=== PATIENT | male | born 1945 | race Caucasian/White ===

== ENCOUNTER 2024-01-23 09:44 | Day surgery (SDC) | payer OTHER ==
[~2024-01-23] VITALS: Ht 165.1 cm; Wt 58.0 kg
[~2024-01-23 09:44] MED LIST: Balanced Salt Epinephrine Irrigation Solution 500 mL IR SCH; Lidocaine HCl/Pf 1% 5 ML VIAL XX SCH; Moxifloxacin HCL 0.5 MG/0.1 ML 0.4MLSYR LEFTEYE SCH; NS 500 ML IV ONE; PHENYLEPHRINE\\TROPICAMIDE\\TETRACAINE OPHTHALMIC DILATING SOLN LEFTEYE PRN; Povidone-Iodine 450 DROP/30 ML Solution LEFTEYE SCH; Triamcinolone Inj Susp 40 MG / ML 1ML Vial INJ SCH
[2024-01-23] MEDS ORDERED: AMLODIPINE BESY10 MG PO (10:02)
[2024-01-23] MEDS ORDERED: BUPROPION XL150 M1 PO (10:03)
[2024-01-23] MEDS ORDERED: ATOR40TA PO (10:03)
[2024-01-23] MEDS ORDERED: METOPROLOL TART5010 PO (10:04)
[2024-01-23] MEDS ORDERED: ANORO ELLIPTA1 EACH INH (10:04)
[2024-01-23] MEDS ORDERED: FentaNYL Citrate 50 MCG/ML 2 ML Injection ONE (10:05)
[2024-01-23] MEDS ORDERED: NS 500 ML IV ONE (10:11)
--- NOTE | 2024-01-23 10:15 | NUR ---
[facility] DR HUERTA NOTIFIED THAT PATIENT TOOK A SIP OF COFFEE WITH CREAM AND SUGAR THIS MORNING AT 0600 WITH HIS BLOOD PRESSURE MEDICINE.
[2024-01-23] MEDS ORDERED: Midazolam HCl 1MG / ML 2ML Vial ONE (10:41)
--- NOTE | 2024-01-23 11:01 | NUR ---
01/23/24 1101 JOSE DANIEL GUAJARDO PT O2 SAT 88%-93 REFUSED O2 BY NC WHEN RN ATTEMPTED TO ADMINISTER O2
[2024-01-23 11:02] VITALS: BP 137/71
== END 2024-01-23 11:22 | disposition home or self-care (01) ==
LOC: ORSCSDS 09:44
PROVIDERS: Ophthalmology
PROC: 08RK3JZ Replacement of Left Lens with Synthetic Substitute, Percutaneous Approach (ICD-10-PCS; principal; 2024-01-23 11:00)
DX: H25.812 Combined forms of age-related cataract, left eye (principal); J43.9 Emphysema, unspecified; I10 Essential (primary) hypertension; J44.9 Chronic obstructive pulmonary disease, unspecified; F17.210 Nicotine dependence, cigarettes, uncomplicated; Z79.899 Other long term (current) drug therapy
CPT/HCPCS: J2250; J3010; J7040; V2632

== ENCOUNTER → 2024-05-26 | Outpatient (CLI) | payer OTHER ==
[~2024-05-26] MED LIST changes: +AMLODIPINE BESY10 MG PO; +ANORO ELLIPTA1 EACH INH; +ATOR40TA PO; +BUPROPION XL150 M1 PO; -Balanced Salt Epinephrine Irrigation Solution 500 mL IR SCH; -Lidocaine HCl/Pf 1% 5 ML VIAL XX SCH; +METOPROLOL TART5010 PO; -Moxifloxacin HCL 0.5 MG/0.1 ML 0.4MLSYR LEFTEYE SCH; -NS 500 ML IV ONE; -PHENYLEPHRINE\\TROPICAMIDE\\TETRACAINE OPHTHALMIC DILATING SOLN LEFTEYE PRN; -Povidone-Iodine 450 DROP/30 ML Solution LEFTEYE SCH; -Triamcinolone Inj Susp 40 MG / ML 1ML Vial INJ SCH
== END | disposition home or self-care (01) ==
LOC: LAB 14:03 → LAB SHORT 14:03
DX: T14.8XXA Other injury of unspecified body region, initial encounter (principal); L08.9 Local infection of the skin and subcutaneous tissue, unspecified
CPT/HCPCS: 87070; 87205

== ENCOUNTER 2024-09-18 16:26 | Emergency (ER) | payer OTHER ==
[~2024-09-18] VITALS: Ht 165.1 cm; Wt 60.8 kg
[2024-09-18 17:16] LABS: BASOPHILS ABSOLUTE AUTO 0.17 K/mm3 (0.00-0.23); BASOPHILS PERCENT AUTO 2 % (0-2); EOSINOPHILS ABSOLUTE AUTO 0.16 K/mm3 (0.00-0.68); EOSINOPHILS PERCENT AUTO 2 % (0-6); Hematocrit 44.9 % (37.0-53.0); Hemoglobin 15.3 g/dL (13.5-17.5); IMMATURE GRAN ABSOLUTE AUTO 0.02 K/mm3 (0.00-0.10); IMMATURE GRAN PERCENT AUTO 0 % (0-1); LYMPHOCYTES ABSOLUTE AUTO 1.19 K/mm3 (0.84-5.20); LYMPHOCYTES PERCENT AUTO 15 % (21-46); MONOCYTES ABSOLUTE AUTO 0.98 K/mm3 (0.16-1.47); MONOCYTES PERCENT AUTO 12 % (4-13); Mean Corpuscular HGB 32.8 pg (26.0-34.0); Mean Corpuscular HGB Conc 34.1 g/dL (31.5-36.5); Mean Corpuscular Volume 96 fL (80-100); Mean Platelet Volume 10.7 fL (9.1-12.4); NEUTROPHILS PERCENT AUTO 69 % (41-73); Platelet Count 237 K/mm3 (150-400); RDW Standard Deviation 49.4 fL (35.1-46.3); Red Blood Cell Count 4.67 M/mm3 (4.30-5.90); White Blood Cell Count 8.02 K/mm3 (4.00-11.30)
[2024-09-18 17:57] LABS: Albumin, Blood 3.4 g/dL (3.4-5.0); Albumin/Globulin Ratio 0.8 (0.8-1.8); Bilirubin, Total 0.7 mg/dL (0.1-1.0); Bun/Creatinine Ratio 18.3 (12.0-20.0); Calcium, Blood 8.9 mg/dL (8.5-10.1); Creatinine, Blood 0.88 mg/dL (0.60-1.20); Globulin, Blood 4.5 g/dL (2.2-4.0); Potassium, Blood 4.4 mmol/L (3.5-5.5); Total Protein, Blood 7.9 g/dL (6.4-8.2)
[2024-09-18] MEDS ORDERED: Doxycycline Hyclate 100 MG TAB PO ONE (18:35)
[2024-09-18] MEDS ORDERED: DOXY100 PO (18:36)
[2024-09-18 18:44] VITALS: BP 157/74
== END 2024-09-18 18:45 | disposition home or self-care (01) ==
LOC: ER 16:26
PROVIDERS: Physician Assistant
DX: J44.0 Chronic obstructive pulmonary disease with (acute) lower respiratory infection (principal); J18.9 Pneumonia, unspecified organism; Z88.0 Allergy status to penicillin; Z88.5 Allergy status to narcotic agent; Z79.1 Long term (current) use of non-steroidal anti-inflammatories (NSAID); Z79.899 Other long term (current) drug therapy; I10 Essential (primary) hypertension
CPT/HCPCS: 71046; 80053; 85025; 85379; 93005; 93010; 99285-25; A9270

== ENCOUNTER 2024-12-20 13:27 | Inpatient (IN) | payer OTHER ==
[2024-12-20] VITALS (8 sets, daily range): BP systolic 97–141; BP diastolic 48–121
[~2024-12-20] VITALS: Ht 162.6 cm; Wt 62.3 kg
[~2024-12-20 13:27] MED LIST changes: +DOXY100 PO
[2024-12-20] MEDS ORDERED: Albuterol 2.5 MG/3 ML VIAL INH SCH (14:05)
[2024-12-20] MEDS ORDERED: Ipratropium Bromide INH 0.02% 0.5 mg/2.5ML Vial INH SCH (14:05)
[2024-12-20 14:17] LABS: BASOPHILS ABSOLUTE AUTO 0.04 K/mm3 (0.00-0.23); BASOPHILS PERCENT AUTO 0 % (0-2); EOSINOPHILS ABSOLUTE AUTO 0.01 K/mm3 (0.00-0.68); EOSINOPHILS PERCENT AUTO 0 % (0-6); Hematocrit 43.2 % (37.0-53.0); Hemoglobin 14.3 g/dL (13.5-17.5); IMMATURE GRAN PERCENT AUTO 1 % (0-1); LYMPHOCYTES ABSOLUTE AUTO 0.62 K/mm3 (0.84-5.20); LYMPHOCYTES PERCENT AUTO 5 % (21-46); MONOCYTES ABSOLUTE AUTO 2.04 K/mm3 (0.16-1.47); MONOCYTES PERCENT AUTO 16 % (4-13); Mean Corpuscular HGB 32.6 pg (26.0-34.0); Mean Corpuscular HGB Conc 33.1 g/dL (31.5-36.5); Mean Corpuscular Volume 98 fL (80-100); Mean Platelet Volume 11.5 fL (9.1-12.4); NEUTROPHILS ABSOLUTE AUTO 10.12 K/mm3 (1.96-9.15); NEUTROPHILS PERCENT AUTO 78 % (41-73); NRBC ABSOLUTE 0.58 K/mm3 (0.00-0.02); NRBC Auto 4.5 /100 WBC (0.0-0.2); Platelet Count 221 K/mm3 (150-400); RDW Coefficient Variation 15.2 % (11.7-14.2); RDW Standard Deviation 54.4 fL (35.1-46.3); Red Blood Cell Count 4.39 M/mm3 (4.30-5.90); White Blood Cell Count 12.93 K/mm3 (4.00-11.30)
[2024-12-20 14:36] LABS: Albumin/Globulin Ratio 0.8 (0.8-1.8); Bilirubin, Total 0.9 mg/dL (0.1-1.0); Bun/Creatinine Ratio 56.6 (12.0-20.0); Creatinine, Blood 1.45 mg/dL (0.60-1.20); Globulin, Blood 3.8 g/dL (2.2-4.0); Potassium, Blood 5.5 mmol/L (3.5-5.5); Total Protein, Blood 6.8 g/dL (6.4-8.2)
[2024-12-20] MEDS ORDERED: Piperacillin/Tazobactam Sod 3.375 GM in NS 100 ML IV ONE (15:40)
[2024-12-20] MEDS ORDERED: NS 1,000 ML IV SCH (15:40)
[2024-12-20 16:03] LABS: Base Excess Venous -1.6 mmol/L; Bicarbonate Venous 22.5 mmol/L (24.0-30.0); PCO2 Venous 51.4 mmHg (38-42); pH Blood Venous 7.29 (7.34-7.37)
[2024-12-20] MEDS ORDERED: Acetaminophen 325 MG TABLET PO PRN (16:45)
[2024-12-20] MEDS ORDERED: Ipratropium/Albuterol SulF 2.5-0.5MG/3 ML Amp INH SCH (16:50)
[2024-12-20 17:18] LABS: Base Excess Venous 4.8 mmol/L; PCO2 Venous 91.1 mmHg (38-42)
[2024-12-20] MEDS ORDERED: Azithromycin 500 MG in NS 250 ML IV SCH (17:18)
[2024-12-20 17:21] LABS: pH Blood Venous 7.17 (7.34-7.37)
[2024-12-20] MEDS ORDERED: Furosemide 10 MG/ML 4ML Vial IV SCH (18:00)
[2024-12-20] MEDS ORDERED: MethylPREDNISolone Sod Succ 125 MG Vial IV SCH (21:00)
[2024-12-20] MEDS ORDERED: Lactobacil 2-S.Thermo-Bifido 1 1 Cap PO SCH (21:00)
[2024-12-20] MEDS ORDERED: GuaiFENesin 600 MG TabCR PO SCH (21:00)
[2024-12-20] MEDS ORDERED: CefTRIAXone Sodium 1,000 MG in NS 100 ML IV SCH (22:11)
[2024-12-21] VITALS (7 sets, daily range): BP systolic 105–122; BP diastolic 52–77
[2024-12-21 03:36] LABS: BASOPHILS ABSOLUTE AUTO 0.04 K/mm3 (0.00-0.23); BASOPHILS PERCENT AUTO 0 % (0-2); EOSINOPHILS ABSOLUTE AUTO 0.01 K/mm3 (0.00-0.68); EOSINOPHILS PERCENT AUTO 0 % (0-6); Hematocrit 44.7 % (37.0-53.0); Hemoglobin 14.6 g/dL (13.5-17.5); IMMATURE GRAN ABSOLUTE AUTO 0.21 K/mm3 (0.00-0.10); IMMATURE GRAN PERCENT AUTO 2 % (0-1); LYMPHOCYTES ABSOLUTE AUTO 0.14 K/mm3 (0.84-5.20); LYMPHOCYTES PERCENT AUTO 1 % (21-46); MONOCYTES ABSOLUTE AUTO 0.41 K/mm3 (0.16-1.47); MONOCYTES PERCENT AUTO 3 % (4-13); Mean Corpuscular HGB 31.7 pg (26.0-34.0); Mean Corpuscular HGB Conc 32.7 g/dL (31.5-36.5); Mean Corpuscular Volume 97 fL (80-100); NEUTROPHILS PERCENT AUTO 94 % (41-73); NRBC ABSOLUTE 0.68 K/mm3 (0.00-0.02); NRBC Auto 5.5 /100 WBC (0.0-0.2); Platelet Count 194 K/mm3 (150-400); RDW Coefficient Variation 15.2 % (11.7-14.2); White Blood Cell Count 12.31 K/mm3 (4.00-11.30)
[2024-12-21 03:45] LABS: Base Excess Venous 4.9 mmol/L; Bicarbonate Venous 26.9 mmol/L (24.0-30.0); pH Blood Venous 7.31 (7.34-7.37)
[2024-12-21 03:54] LABS: Magnesium, Blood 2.9 mg/dL (1.6-2.4)
[2024-12-21 03:55] LABS: Albumin/Globulin Ratio 0.8 (0.8-1.8); Bilirubin, Total 0.8 mg/dL (0.1-1.0); Bun/Creatinine Ratio 53.3 (12.0-20.0); Calcium, Blood 7.7 mg/dL (8.5-10.1); Creatinine, Blood 1.35 mg/dL (0.60-1.20); Potassium, Blood 5.4 mmol/L (3.5-5.5)
--- NOTE | 2024-12-21 04:31 | NUR ---
PASSED BEDSIDE SWALLOW
[2024-12-21] MEDS ORDERED: Enoxaparin 40 MG/0.4 ML SYR SC SCH (09:00)
--- NOTE | 2024-12-21 12:21 | NUR ---
1200 REASSSESSMENT PT IS MORE ALERT SITTING UPRIGHT IN BED SPEAKING IN SHORT SENTANCES. SPO2 >92% ON 4L NC. PT TOLERATINFG PO INTAKE. LS STILL COARSE/DIM TO. PT W PRODUCTIVE HACKING COUGH. PT W INTERMITTANT TREMOR THAT HE REPORTS IS NOT NEW TO HIM. PT DENIES ANY PAIN OR NAUSEA AT THIS TIME.
[2024-12-21] MEDS ORDERED: Nicotine 21 MG PATCH TOP SCH (14:40)
--- NOTE | 2024-12-21 17:57 | NUR ---
DAY SHIFT SUMMARY PT'S MENTATION IMPROVING T/O THE SHIFT TO WHERE HE IS NOW TALKING IN FULL SENTANCES AND CARRYING ON A CONVERSATION. P[T WEARING BIPAP 16/8 W 35% FIO2 FOR MOST OF THE SHIFT USING 4L NC FOR BREAKS AND MEALS. PT W PRODUCTIVE COUGH T/O THE SHIFT. BP WNL AND STABLE. MONITOR SHOWING SR 90'S THIS SHIFT. PT CURRENTLY SITTING UP IN BED EATING DINNER DENYING ANY PAIN OR NAUSEA. WILL REPORT TO ONCOMING RN.
[2024-12-22] VITALS (7 sets, daily range): BP systolic 101–117; BP diastolic 46–63
[2024-12-22 03:22] LABS: Hematocrit 40.6 % (37.0-53.0); Hemoglobin 13.3 g/dL (13.5-17.5); Mean Corpuscular HGB 31.4 pg (26.0-34.0); Mean Corpuscular HGB Conc 32.8 g/dL (31.5-36.5); Mean Corpuscular Volume 96 fL (80-100); Mean Platelet Volume 11.2 fL (9.1-12.4); NRBC Auto 5.5 /100 WBC (0.0-0.2); Platelet Count 189 K/mm3 (150-400); RDW Coefficient Variation 15.3 % (11.7-14.2); RDW Standard Deviation 53.5 fL (35.1-46.3); Red Blood Cell Count 4.23 M/mm3 (4.30-5.90); White Blood Cell Count 14.61 K/mm3 (4.00-11.30)
[2024-12-22 03:40] LABS: Albumin, Blood 2.7 g/dL (3.4-5.0); Albumin/Globulin Ratio 0.8 (0.8-1.8); Bilirubin, Total 0.5 mg/dL (0.1-1.0); Bun/Creatinine Ratio 51.7 (12.0-20.0); Calcium, Blood 7.5 mg/dL (8.5-10.1); Creatinine, Blood 1.16 mg/dL (0.60-1.20); Globulin, Blood 3.5 g/dL (2.2-4.0); Potassium, Blood 5.4 mmol/L (3.5-5.5); Total Protein, Blood 6.2 g/dL (6.4-8.2)
--- NOTE | 2024-12-22 05:41 | NUR ---
SHIFT SUMMARY: PT IS ALERT & ORIENTED X3, HARD OF HEARING, AND MUMBLES WHEN TALKING-AT TIMES. PT CAN COMMUNICATE APPROPRIATELY W/STAFF, MAKE NEEDS KNOWN, AND FOLLOWS COMMANDS. PT OBSERVED TO BOOST HIMSELF UP FROM THE BED W/ BILAT UE. NEEDS ENCOURAGEMENT TO PERFORM INDEPENDENTLY. PT DID APPEAR TO HAVE SOME ANXIETY T/O THE ECD, EVIDENCED BY HIS CALLING OUT INTERMITTENTLY, USING STRESS BALL, AND CONTINUOUSLY TAPPING ON HIS BEDSIDE TABLE- HE WAS EASILY RE-ORIENTED AND ASSURED VIA VERBAL COMMUNICATION. PT ASKED AND RECEIVED MULTIPLE SNACKS T/O THE SHIFT. PT ABLE TO EAT INDEPENDENTLY W/MIN ASSISTANCE IN OPENING PACKAGES. HE REMAINED PLEASANT AND COOPERATIVE W/CARE T/O SHIFT. PT IN SINUS RHYTHM, HR 80S. SBP 100-110S. DENIED SOB. PT ON 1L O2 VIA NC, FIO2 MAINTAINED >90%. ABD REMAINS MODERATELY DISTENDED, SOFT TO PALPATION/NONTENDER. PT DID C/O OF ABD PAIN AFTER EPISODE OF INSISTENT HICCUPS. HE ALSO C/O OF GENERALIZED BACK PAIN, CHRONIC PER PT. HE WAS MEDICATED WITH TYLENOL PER EMAR ORDERS. SEE EMAR. PT HAS MALE PUREWICK IN PLACE, CONNECTED TO CONTINUOUS LOW SUCTION. THIS RN TO CONTINUE TO MONITOR AND REPORT TO ONCOMING RN.
[2024-12-22] MEDS ORDERED: Furosemide 40 MG Tab PO SCH (09:00)
[2024-12-22] MEDS ORDERED: Nicotine 21 MG PATCH TOP SCH (09:00)
--- NOTE | 2024-12-22 11:43 | NUR ---
AM NOTE: THIS RN ASSUMED CARE OF PT AT APPROX 0700, BEDSIDE REPORT FROM NOC RN. PT ALERT, ORIENTED X3-4. [place], MUMBLED SPEECH NOTED. HR 80-90'S, SINUS RHYTHM ON MONITOR. SBP 110'S, MAP >65. DENIES CHEST PAIN/PRESSURE. SPO2 >90% ON 3-6L VIA NC, WET PRODUCTIVE COUGH NOTED. PT ABLE TO SELF SUCTION THICK, WHITE SECRETIONS. EDUCATION ON FLUTTER & INCENTIVE SPIROMETER PROVIDED. ATTEMPTED BIPAP THIS AM, PT ONLY ABLE TO TOLERATE FOR SHORT PERIOD OF TIME. UP TO CHAIR VIA LIFT FOR BREAKFAST, MINCED & MOIST DIET. MALE PW DRAINING URINE TO SUCTION. DENIES PAIN. PT REMAINS PCU STATUS. RESTING IN CHAIR W/ BREATHING TX AT THIS TIME, CALL LIGHT IN REACH.
--- NOTE | 2024-12-22 13:27 | NUR ---
UPDATE: PT UP TO AMBULATE W/ RN'S. ABLE TO WALK APPROX 400FT W/ FWW & RN ASSIST FOR LINE MANAGEMENT ONLY. UP TO 6L NC TO MAINTAIN SPO2 >90%. ABLE TO SHOWER W/ RN ASSIST POST-WALK, BACK TO ROOM VIA WHEELCHAIR. VSS, ON 2L VIA NC W/ SPO2 >90%. UP IN CHAIR AT THIS TIME, CALL LIGHT IN REACH.
--- NOTE | 2024-12-22 17:57 | NUR ---
END OF SHIFT NOTE: PT REMAINS A/OX4, ABLE TO COMMUNICATE NEEDS. [place] W/ MUMBLED SPEECH. PT REMAINS OFF BIPAP, 2-3L VIA NC TO MAINTAIN SPO2 >90%. DESAT TO LOW-MID 80'S WHILE AMBULATING TO TOILET, ABLE TO RECOVER IN CHAIR. ENCOURAGING INCENTIVE SPIROMETRY & FLUTTER VALVE. PRODUCTIVE COUGH W/ WHITE SPUTUM, ABLE TO SELF SUCTION. HR 80-100'S, SINUS/SINUS TACH ON MONITOR PRIOR TO REMOVAL. SBP 110'S, DENIES CHEST PAIN/PRESSURE. AFEBRILE. PUREWICK USED THIS AM, PT REQUESTING TO USE URINAL THIS AFTERNOON. UP TO TOILET FOR BM. ABLE TO AMBULATE W/ FWW. TOLERATING PO INTAKE WELL, NO COUGHING OR SIGNS OF ASPIRATION NOTED. PT IS MED W/O TELE STATUS AT THIS TIME. UP IN CHAIR FOR DINNER W/ CALL LIGHT IN REACH. WILL REPORT TO ONCOMING SERENA RN.
[2024-12-23] MEDS ORDERED: Melatonin 5 MG Tablet PO SCH (02:50)
[2024-12-23 03:21] VITALS: BP 114/55
[2024-12-23 03:48] LABS: Bun/Creatinine Ratio 66.2 (12.0-20.0); Calcium, Blood 8.4 mg/dL (8.5-10.1); Creatinine, Blood 0.95 mg/dL (0.60-1.20); Potassium, Blood 5.5 mmol/L (3.5-5.5)
[2024-12-23 04:30] LABS: BASOPHILS ABSOLUTE AUTO 0.01 K/mm3 (0.00-0.23); BASOPHILS PERCENT AUTO 0 % (0-2); EOSINOPHILS PERCENT AUTO 0 % (0-6); Hematocrit 39.3 % (37.0-53.0); Hemoglobin 12.8 g/dL (13.5-17.5); IMMATURE GRAN ABSOLUTE AUTO 0.15 K/mm3 (0.00-0.10); IMMATURE GRAN PERCENT AUTO 1 % (0-1); LYMPHOCYTES ABSOLUTE AUTO 0.01 K/mm3 (0.84-5.20); LYMPHOCYTES PERCENT AUTO 0 % (21-46); MONOCYTES ABSOLUTE AUTO 1.29 K/mm3 (0.16-1.47); MONOCYTES PERCENT AUTO 9 % (4-13); Mean Corpuscular HGB 31.3 pg (26.0-34.0); Mean Corpuscular HGB Conc 32.6 g/dL (31.5-36.5); Mean Corpuscular Volume 96 fL (80-100); Mean Platelet Volume 11.2 fL (9.1-12.4); NEUTROPHILS PERCENT AUTO 90 % (41-73); NRBC ABSOLUTE 0.47 K/mm3 (0.00-0.02); NRBC Auto 3.1 /100 WBC (0.0-0.2); Platelet Count 218 K/mm3 (150-400); RDW Coefficient Variation 15.3 % (11.7-14.2); RDW Standard Deviation 53.6 fL (35.1-46.3); Red Blood Cell Count 4.09 M/mm3 (4.30-5.90); White Blood Cell Count 15.26 K/mm3 (4.00-11.30)
--- NOTE | 2024-12-23 06:09 | NUR ---
SHIFT SUMMARY: PT REMAINS A&O X3, CAN TELL RN YEAR BUT REQUIRES FREQUENT RE-ORIENTING TO MONTH/DAY/TIME. FOLLOWS COMMANDS AND COMMUNICATRES APPROPRIATELY WITH STAFF. REMAINS PLEASANT AND COOPERATIVE W/CARE. SBP STABLE T/O SHIFT, MAPS>65. PT KEPT ON 2L O2 VIA NC WHILE AT REST, SATS >93%, AND O2 INCREASED UP TO 4L WHEN AMBULATING TO BEDSIDE TOILET TO MAINTAIN SATS>88%. LUNGS COARSE T/O. PT CONTINUES TO COUGH UP MODERATE AMOUNTS OF THICK SPUTUM. PT ENCOURAGED TO USE INCENTIVE SPIROMETER, EDUCATION PROVIDED AND REINFORCED. PT HAD MULTIPLE BMS THIS SHIFT. PT C/O THAT HIS BOTTOM FELT SORE AFTER HIS 3RD BM. STOOL NOTED TO BE DARK IN COLOR W/WHAT APPEARED BRIGHT/MAROON-LIKE RED-TINGE. PT DENIED N/V OR ABD PAIN. PT USING URINAL AND BEDSIDE TOILET TO VOID. URINE APPEARED YELLOW IN COLOR. PT HAS 2 PERIPHERAL IVS, SALINE LOCKED AT THIS TIME. THIS RN TO CONTINUE TO MONITOR AND REPORT TO ONCOMING RN.
[2024-12-23 07:39] VITALS: BP 119/59
[2024-12-23] MEDS ORDERED: PredniSONE 20 MG Tab PO SCH (09:00)
--- NOTE | 2024-12-23 09:49 | NUR ---
AM NOTE: THIS RN ASSUMED CARE OF PT AT APPROX 0700, BEDSIDE REPORT FROM NOC RN. PT ALERT, ORIENTED X4 THIS AM. MUMBLED SPEECH BUT ABLE TO MAKE NEEDS KNOWN. VSS. HR 90'S, NO CARDIAC MONITORING PER ORDERS. SBP 110'S, DENIES CHEST PAIN/PRESSURE. SPO2 >90% ON 2L VIA NC WHILE AT REST, UP TO 4L W/ EXERTION. AFEBRILE. PT AMBULATED TO CHAIR W/ FWW & SBA FOR BREAKFAST. UP TO TOILET FOR BM; LARGE, LIQUID, BLACK STOOL. MD VARGAS AWARE, GUAIAC STOOL ORDER RECEIVED & PLAN TO REPEAT H&H THIS AFTERNOON. ATTENDS IN PLACE, PT VOIDING W/ URINAL OR ON TOILET. TOLERATING MINCED & MOIST DIET WELL. NO OTHER NEEDS AT THIS TIME, CALL LIGHT IN REACH.
[2024-12-23 11:00] LABS: HEPATITIS A ANTIBODY, IGM Negative (Negative); HEPATITIS B CORE ANTIBODY, IGM Negative (Negative); HEPATITIS B SURFACE ANTIGEN Negative (Negative); HEPATITIS C AB CIA INTERP Negative (Negative); HEPATITIS C ANTIBODY CIA INDEX 0.11 IV
[2024-12-23 13:15] LABS: Hematocrit 34.3 % (37.0-53.0); Hemoglobin 11.3 g/dL (13.5-17.5)
[2024-12-23 14:59] VITALS: BP 131/63
[2024-12-23 15:08] LABS: Stool Occult Blood Guaiac 1 Pos (Neg)
[2024-12-23] MEDS ORDERED: Pantoprazole Sodium 40 MG Injection IV SCH (15:40)
--- NOTE | 2024-12-23 15:52 | NUR ---
UPDATE: HGB AND + GUIAIC STOOL RESULTS RECEIVED. CALL TO DR. VARGAS; W/ ORDERS FOR GI CONSULT CALL PLACED TO DR. COOPER. ORDERS RECEIVED TO START PROTONIX 40MG IV BID W/ START TIME NOW, NPO STATUS, AND TYPE & SCREEN. PT IS NOW MEDICAL W/ TELE STATUS PER DR. VARGAS. PT UPDATED ON PLAN OF CARE. DR. COOPER AT BEDSIDE AT THIS TIME.
[2024-12-23 16:47] LABS: Hematocrit 34.3 % (37.0-53.0); Hemoglobin 11.4 g/dL (13.5-17.5)
--- NOTE | 2024-12-23 18:09 | NUR ---
END OF SHIFT NOTE: PT A/OX4, ABLE TO MAKE NEEDS KNOWN. VSS. HR 100'S, SINUS TACH ON MONITOR. SBP 110-130'S, MAP >65. SPO2 >90% ON 2L VIA NC WHILE AT REST, UP TO 6L W/ EXERTION. AFEBRILE. PT ABLE TO AMBULATE APPROX 400FT W/ FWW ON 6L O2. NPO AT THIS TIME PENDING SURGICAL F/U IN AM; PER MD COOPER, OK FOR SMALL SIPS OF CLEAR LIQUIDS. PT ABLE TO VOID IN URINAL, NO ADDITIONAL BM'S THIS AFTERNOON. DECLINED SHOWER THIS SHIFT. REPOSITIONING INDEPENDENTLY IN BED. NO OTHER NEEDS AT THIS TIME, CALL LIGHT IN REACH. BED ALARM ON FOR PT SAFETY.
[2024-12-23 20:07] VITALS: BP 121/56
[2024-12-23 22:33] LABS: Hematocrit 31.5 % (37.0-53.0); Hemoglobin 10.6 g/dL (13.5-17.5)
[2024-12-24] VITALS (57 sets, daily range): BP systolic 60–165; BP diastolic 29–93
--- NOTE | 2024-12-24 03:06 | NUR ---
PT UPDATE: REPORT GIVEN BY THIS RN TO SUPERVISOR DRILLING AND SHOOTING VIPIN. PT TO GO TO RM 215.
--- NOTE | 2024-12-24 03:26 | NUR ---
PT UPDATE: THIS RN TRANSFERRED PT TO SURGICAL FLOOR, RM 215, VIA . PT BELONGINGS WITH PT.
--- NOTE | 2024-12-24 04:09 | NUR ---
SHIFT SUMMARY PT ARRIVED TO UNIT FROM ICU AT 0320 TODAY VIA WHEELCHAIR. IS ON 2L NC, WITH SPO2 AT 94%. A/O WITH VSS. DENIES SOB, PAIN, CP/PRESSURE, OR N/V. IS NPO R/T TO POSSIBLE GI SCOPE TODAY. LUNG SOUNDS DEM AT BASES AND COARSE T/O, EXP WHEEZE NOTED RUL. MOIST COUGH AND SHALLOW BREATHING ALSO NOTED. PT DEMONSTRATED DB AND COUGHING. PT PLEASANT AND COOPERATIVE WITH CARE. ABLE TO MAKE NEEDS KNOWN. ATTENDS IN PLACE, CDI. URINAL AT BEDSIDE. ORIENTATION TO ROOM PROVIDED. PERSONAL BELONGINGS DELIVERED BY DIRECTOR OF PROGRAM MANAGEMENT. PT [place] AND DENIES HEARING AID OR DENTURES WITH HIM IN HOSPITAL. PT CURRENTLY RESTING IN BED WITH CALL LIGHT IN REACH AND BED ALARM ON FOR SAFETY. WILL GIVE REPORT TO ONCOMIGN RN
[2024-12-24 04:41] LABS: Hematocrit 27.6 % (37.0-53.0); Hemoglobin 9.1 g/dL (13.5-17.5); Mean Corpuscular HGB 31.7 pg (26.0-34.0); Mean Corpuscular Volume 96 fL (80-100); Mean Platelet Volume 10.9 fL (9.1-12.4); NRBC ABSOLUTE 0.32 K/mm3 (0.00-0.02); NRBC Auto 2.1 /100 WBC (0.0-0.2); Platelet Count 178 K/mm3 (150-400); RDW Coefficient Variation 15.7 % (11.7-14.2); RDW Standard Deviation 54.5 fL (35.1-46.3); Red Blood Cell Count 2.87 M/mm3 (4.30-5.90)
--- NOTE | 2024-12-24 04:59 | NUR ---
UPDATE PT SCREAMING, CRYING OUT AND DEMANDING WATER AND ICE AT THIS TIME. STATING, "STOP THIS SHIT. I DONT WANT THE TEST." PT REFUSING GI SCOPE TODAY IF NOT ALLOWED TO DRINK. ORAL SWABS PROVIDED. EDUCATION AND REASSURANCE GIVEN BY THIS RN AND FLIGHT MANAGER. BED ALARM ON FOR SAFETY. CALL OUT TO PROVIDER. CHARGE AWARE. PT HAS CALL LIGHT IN REACH. AWAITING HOSPITALIST RETURN CALL.
[2024-12-24 05:00] LABS: Bun/Creatinine Ratio 49.9 (12.0-20.0); Calcium, Blood 7.8 mg/dL (8.5-10.1); Creatinine, Blood 0.88 mg/dL (0.60-1.20); Potassium, Blood 5.3 mmol/L (3.5-5.5)
--- NOTE | 2024-12-24 05:30 | NUR ---
UPDATE PT NOW MORE CALM AND COOPERATIVE. RN AND TUBE DRAWING SUPERVISOR ABLE TO REASSURE AND CALM PATIENT. SOB AND SHALLOW BREATHING NOTED DESPITE BREATHING EXERCISES, CURRENTLY ON 5L NC AT 88-90%. RT CALLED FOR PRN BREATHING TX AND ADMINISTERING TX NOW. PT WILLING AND COOPERATIVE. HAS CALL LIGHT IN REACH AND BED ALARM ON FOR SAFETY/.
--- NOTE | 2024-12-24 05:45 | NUR ---
UPDATE PT NOW APPEARS TO BE SLEEPING IN BED WITH EYES CLOSED AND RESP EVEN/UNLABORED ON 3L NC AT 96% POST BREATHING TX. PT APPEARS RELAXED AND COMFORTABLE. HAS CALL LIGHT IN REACH AND BED ALARM ON FOR SAFETY.
--- NOTE | 2024-12-24 06:10 | NUR ---
UPDATE DR. GONZALES AT NURSES STATION, UPDATED ON PATIENT'S SITUATION AND CURRENT STATUS- SEE PREVIOUS NOTES. NO NEW ORDERS OBTAINED.
--- NOTE | 2024-12-24 06:29 | NUR ---
UPDATE PT CONT TO BE RESTING IN BED WITH EYES CLOSED AND RESP EVEN/UNLABORED. O2 NOW AT 2L NC WITH SPO2 AT 96%. PT HAS CALL LIGHT IN REACH AND BED ALARM ON FOR SAFETY. WILL NOTIFY DAY RN.
[2024-12-24] MEDS ORDERED: Diazepam 5 MG / ML 2ML SYR IV ONE (07:10)
--- NOTE | 2024-12-24 07:16 | NUR ---
TELE NOTIFIED NURSE THAT PTS HEART RATE 120-130.PT ANXIOUS.I CALLED DR GONZALES TO NOTIFY AND RECEIVED ORDER FOR VALIUM.I NOTIFIED PTS NURSE.
[2024-12-24] MEDS ORDERED: NS 1,000 ML IV ONE ×2 (07:35→07:40)
[2024-12-24 07:58] LABS: Hemoglobin 7.4 g/dL (13.5-17.5)
[2024-12-24 08:45] LABS: BASOPHILS ABSOLUTE AUTO 0.02 K/mm3 (0.00-0.23); BASOPHILS PERCENT AUTO 0 % (0-2); EOSINOPHILS ABSOLUTE AUTO 0.01 K/mm3 (0.00-0.68); EOSINOPHILS PERCENT AUTO 0 % (0-6); Hematocrit 24.2 % (37.0-53.0); Hemoglobin 7.7 g/dL (13.5-17.5); IMMATURE GRAN ABSOLUTE AUTO 0.13 K/mm3 (0.00-0.10); IMMATURE GRAN PERCENT AUTO 1 % (0-1); LYMPHOCYTES ABSOLUTE AUTO 0.69 K/mm3 (0.84-5.20); LYMPHOCYTES PERCENT AUTO 4 % (21-46); MONOCYTES ABSOLUTE AUTO 2.83 K/mm3 (0.16-1.47); MONOCYTES PERCENT AUTO 17 % (4-13); Mean Corpuscular HGB Conc 31.8 g/dL (31.5-36.5); Mean Corpuscular Volume 100 fL (80-100); Mean Platelet Volume 11.3 fL (9.1-12.4); NEUTROPHILS ABSOLUTE AUTO 12.92 K/mm3 (1.96-9.15); NEUTROPHILS PERCENT AUTO 78 % (41-73); NRBC ABSOLUTE 0.73 K/mm3 (0.00-0.02); NRBC Auto 4.4 /100 WBC (0.0-0.2); Platelet Count 170 K/mm3 (150-400); RDW Coefficient Variation 15.9 % (11.7-14.2); RDW Standard Deviation 57.2 fL (35.1-46.3); Red Blood Cell Count 2.41 M/mm3 (4.30-5.90)
[2024-12-24 08:57] LABS: Albumin/Globulin Ratio 0.9 (0.8-1.8); Bilirubin, Total 0.5 mg/dL (0.1-1.0); Calcium, Blood 7.4 mg/dL (8.5-10.1); Creatinine, Blood 1.02 mg/dL (0.60-1.20); Globulin, Blood 2.3 g/dL (2.2-4.0); Potassium, Blood 5.8 mmol/L (3.5-5.5); Total Protein, Blood 4.3 g/dL (6.4-8.2)
--- NOTE | 2024-12-24 09:16 | NUR ---
Responded to PRODUCT MARKETING ENGINEER activation for room 215. On arrival, pt lethargic, drowsy. PRODUCT MARKETING ENGINEER called due to high HR and low BP. On arrival BP 96/44 (59). Per telegraph service clerk Aleksandra, HR had been 120s, ST, but now was up to 140 ST. Pt had received dose of IV valium for panic attack within the hour. Dr Watts immediately to bedside. Started IV bolus of NS. Plan to transfuse PRBC- order pending in BB. Transferred to ICU 12. CBC and CMP drawn. On arrival to ICU pt more alert and inquires "Am I back in the ICU? Why?". Dr Watts reassessed patient and stated IV fluids can be stopped. Report given to Lambert Islsa RN to assume care. Blood slip sent and awaiting arrival of first unit PRBC. Provider notified of K+ 5.8. No new orders.
[2024-12-24] MEDS ORDERED: Lactated Ringer's 1,000 ML IV SCH (09:20)
[2024-12-24] MEDS ORDERED: EpiNEPhrine 1 MG/1 ML 1ML Vial ONE (09:32)
[2024-12-24] MEDS ORDERED: Benzocaine Oral Spray 0.5ML UD ONE (09:41)
[2024-12-24] MEDS ORDERED: Lactated Ringer's 1,000 ML IV ONE (09:43)
--- NOTE | 2024-12-24 10:33 | NUR ---
12/24/24 1032 Dileep Smith PT IN ICU 12. ALERT AND ORIENTED. ABLE TO SIGN CONSENTS FOR EGD PER DR. COOPER W/ANESTHESIA PROVIDED BY DR. QUINN SEE DICTAION AND ANESTHESIA RECORDS
--- NOTE | 2024-12-24 10:54 | NUR ---
ICU TRANSFER: UPON ARRIVAL PT IS AAOX4, FOLLOWS COMMANDS, MOVES ALL EXTREMETIES. ST 120S, WEAK DISTAL PULSES, NO EDEMA OR JVD NOTED. PRBC X2 ORDERED AND GIVEN. EGD DONE; NO ACTIVE BLEEDING WAS NOTED DURING PROCEDURE. NO CLIPS OR CAUTERIZATIONS DONE. PATIENT ON 2L NC, NO BMS ATT.
[2024-12-24] MEDS ORDERED: Metoprolol Tartrate 1 MG/ML 5 ML VIAL IV PRN (11:20)
[2024-12-24 12:19] LABS: Hematocrit 34.1 % (37.0-53.0); Hemoglobin 11.3 g/dL (13.5-17.5)
[2024-12-24] MEDS ORDERED: Metoprolol Tartrate 25 MG Tab PO ONE (12:40)
[2024-12-24] MEDS ORDERED: NS 1,000 ML IV SCH (13:00)
--- NOTE | 2024-12-24 13:11 | NUR ---
AFIB RVR AROUND 1110 PATIENT WENT INTO TACHY ARRYTHMIA. MANJU NETTLES NOTIFIED AND GAVE ORDERS FOR LOPRESSOR 2.5IV NOW AND EKG. EKG SHOWS AFIB RVR. LOPRESSOR 2.5IV ADMINISTERED. LOPRESSOR 25MG PO BID STARTED.
[2024-12-24 14:30] LABS: Bun/Creatinine Ratio 51.9 (12.0-20.0); Calcium, Blood 7.5 mg/dL (8.5-10.1); Creatinine, Blood 1.04 mg/dL (0.60-1.20); Potassium, Blood 5.8 mmol/L (3.5-5.5)
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
[2024-12-24 16:21] LABS: Hematocrit 32.7 % (37.0-53.0); Hemoglobin 10.9 g/dL (13.5-17.5)
[2024-12-24] MEDS ORDERED: Lidocaine HCl 2% 20 MG/ML 5ML SYR IV ONE (17:23)
[2024-12-24] MEDS ORDERED: Propofol 10mg/ml 20 ml Vial (Procedural) IV ONE (17:23)
[2024-12-24 20:19] LABS: Hematocrit 29.7 % (37.0-53.0); Hemoglobin 10.1 g/dL (13.5-17.5)
[2024-12-24] MEDS ORDERED: Metoprolol Tartrate 25 MG Tab PO SCH (21:00)
--- NOTE | 2024-12-24 21:38 | NUR ---
ASSUMPTION OF CARE CARE OF PT ASSUMED FOLLOWING BEDSIDE SHIFT REPORT FROM DAY RN. PT LYING IN BED IN NO APPARENT DISTRESS, DOZING OFF, ALERT AND ORIENTED TO ALL. NO PAIN. AFEBRILE 97.5 F. SINUS RHYTHM WITH SOFT BP, NS AT 150ML/HR. PT REPORTEDLY WENT INTO RAPID RATE A FIB EARLIER TODAY FOR A COUPLE OF HOURS- WAS RESOLVED WITH 2.5MG METOPROLOL FOLLOWED BY 25MG OF PO METOPROLOL. NO CHEST PAIN/PRESSURE. 4L NC PRODUCING SAT > 95%. WILL TITRATE DOWN TOLERATED. PT HAS H/O OF COPD. PT IS TACHYPNEIC IN THE MID 20'S BUT DENIES SOB EVEN WHEN HE SOUNDS LIKE BREATHING IS REQUIRING EXTRA EFFORT. 1 LARGE STICKY, DARK RED STOOL DURING ASSESSMENT MAKES 4 SINCE ARRIVAL BACK TO ICU THIS AM. LASTEST H/H WAS 10.1/29.7, DOWN FROM 10.9/32.7 FOUR HOURS EARLIER. INCONTINENT OF FECES BUT USES URINAL. PT HAS CALL LIGHT HANDY. WILL REVIEW AND CONTINUE PLAN OF CARE.
[2024-12-25] VITALS (32 sets, daily range): BP systolic 99–132; BP diastolic 46–92
[2024-12-25 04:06] LABS: Hematocrit 25.6 % (37.0-53.0); Hemoglobin 8.5 g/dL (13.5-17.5); Mean Corpuscular HGB 31.3 pg (26.0-34.0); Mean Corpuscular HGB Conc 33.2 g/dL (31.5-36.5); Mean Platelet Volume 11.2 fL (9.1-12.4); NRBC ABSOLUTE 0.11 K/mm3 (0.00-0.02); NRBC Auto 0.9 /100 WBC (0.0-0.2); Platelet Count 134 K/mm3 (150-400); RDW Coefficient Variation 15.6 % (11.7-14.2); RDW Standard Deviation 52.9 fL (35.1-46.3); Red Blood Cell Count 2.72 M/mm3 (4.30-5.90); White Blood Cell Count 12.83 K/mm3 (4.00-11.30)
[2024-12-25 04:08] LABS: Mean Corpuscular Volume 94 fL (80-100)
[2024-12-25 04:21] LABS: Bun/Creatinine Ratio 40.7 (12.0-20.0); Calcium, Blood 7.5 mg/dL (8.5-10.1); Creatinine, Blood 0.76 mg/dL (0.60-1.20); Potassium, Blood 5.5 mmol/L (3.5-5.5)
--- NOTE | 2024-12-25 07:47 | NUR ---
SHIFT SUMMARY PT LYING IN BED IN NO APPARENT DISTRESS, ALERT AND ORIENTED TO ALL. NO PAIN. AFEBRILE THROUGHOUT SHIFT. SINUS RHYTHM WITH SOFT BP TO STABLE BP, NS AT 150ML/HR. MAP STABLIZED ABOVE 65 SECOND HALF OF SHIFT. PT REPORTEDLY WENT INTO RAPID RATE A FIB EARLIER YESTERDAY FOR A COUPLE OF HOURS- WAS RESOLVED WITH 2.5MG METOPROLOL FOLLOWED BY 25MG OF PO METOPROLOL. NO CHEST PAIN/PRESSURE ALL NIGHT. 4L NC PRODUCING SAT > 95% PT RR WAS 14-25. 1 LARGE STICKY, DARK RED STOOL DURING SHIFT. PT TOLD ME WHEN HE NEEDED TO BE CLEANED. NO AB PAIN, N/V. THIS MORNING'S HEMOGLOBIN WAS 8.4, DOWN FROM 10.1 LAST NIGHT. INCONTINENT OF FECES BUT USES URINAL. PT HAS CALL LIGHT HANDY. BEDSIDE SHIFT REPORT GIVEN TO ONCOMING DAY RN.
[2024-12-25] MEDS ORDERED: Metoprolol Tartrate 25 MG Tab PO SCH (09:00)
[2024-12-25 12:19] LABS: Hematocrit 27.3 % (37.0-53.0)
[2024-12-25] MEDS ORDERED: NS 500 ML IV ONE (12:31)
[2024-12-25] MEDS ORDERED: Furosemide 10 MG/ML 4ML Vial IV SCH (13:45)
--- NOTE | 2024-12-25 16:00 | NUR ---
Transfer to PCU Pt made PCU status this afternoon. Pt A&O x4. VSS. Spo2 > 92% on 3L NC. Monitor showing SR, HR 80s-90s. Pt continent, using urinal. Pt w/ no BM this shift. Pt tolerating full liquid diet. Pt denying pain/discomfort. Report given to accepting SOAKING PIT OPERATOR. Pt taken to PCU-10 by bed w/ belongings @ approx 1600.
--- NOTE | 2024-12-25 17:42 | NUR ---
TRANSFER NOTE/SHIFT SUMMARY PT ARRIVED TO PCU FROM ICU VIA ICU BED. PT SLID BY 4 STAFF FROM ICU BED TO PCU BED. PT A&OX4, [place]. STARTS TO TEAR UP WHEN TALKING ABOUT HIS . SP02>90% ON 3-4L. SOB W/ SLIDING/ANY EXERTION. LUNGS COARSE. TELEMETRY SHOWS SINUS TACH, HR 100'S. DENIES PAIN. PT EATING DINNER IN BED SITTING UP. PT ORIENTED TO ROOM AND CALL LIGHT. CALL LIGHT IN REACH.
[2024-12-26 03:33] VITALS: BP 96/57
[2024-12-26 04:54] LABS: Hematocrit 24.2 % (37.0-53.0); Hemoglobin 7.8 g/dL (13.5-17.5); Mean Corpuscular HGB 30.8 pg (26.0-34.0); Mean Corpuscular HGB Conc 32.2 g/dL (31.5-36.5); Mean Corpuscular Volume 96 fL (80-100); NRBC ABSOLUTE 0.03 K/mm3 (0.00-0.02); NRBC Auto 0.2 /100 WBC (0.0-0.2); Platelet Count 148 K/mm3 (150-400); RDW Coefficient Variation 15.3 % (11.7-14.2); RDW Standard Deviation 53.1 fL (35.1-46.3); Red Blood Cell Count 2.53 M/mm3 (4.30-5.90); White Blood Cell Count 13.26 K/mm3 (4.00-11.30)
[2024-12-26 05:20] LABS: Bun/Creatinine Ratio 30.3 (12.0-20.0); Calcium, Blood 7.1 mg/dL (8.5-10.1); Creatinine, Blood 0.73 mg/dL (0.60-1.20); Potassium, Blood 3.9 mmol/L (3.5-5.5)
--- NOTE | 2024-12-26 06:33 | NUR ---
NOC SHIFT SUMMARY PT IS A+O X4 ABLE TO MAKE NEEDS KNOWN, USES CALL LIGHT. PT IS [place] BUT WILL ASK FOR CLARIFICATION. SPO2 >90% ON 3-4L DURING THE NIGHT. PT DID HOWEVER HAVE A FEW EPISODES OF DESATURATING WHILE SLEEPING AND NC CAME OUT OF HIS NOSE. HR RATE 80-100S. DENIES CHEST PAIN OR PRESSURE. PT ALSO DENIES SOB WHEN VISABLLY WORKING HARD TO BREApiFixE. PT HAS A PRODUCTIVE COUGH WITH THINK WHITE SPUTUM. LUNG SOUNDS COARSE T/O. PT DENIES NEEDS AT THIS TIME. BEDREST DURING THE NIGHT, SING URINAL TO VOID. BED IN LOWEST POSTION, CALL LIGHT IN REACH. WILL REPORT TO ONCOMING RN.
[2024-12-26 08:30] VITALS: BP 112/50
--- NOTE | 2024-12-26 12:13 | NUR ---
PATIENT CARE NOTE PT IS STILL CONTINUING TO HAVE BLACK/RED TINGED STOOLS. HE DENIES ABD PAIN/DISCOMFORT AND HAS HAD GOOD PO APPETITE.
[2024-12-26 15:27] VITALS: BP 117/58
--- NOTE | 2024-12-26 17:35 | NUR ---
NOTE PT BEING TRANSFERED TO [facility]. GOT REPORT FROM ENVIRONMENTAL SERVICES TECHNICIAN. THIS RN NOTICED SPUTUM CULTURE CAME BACK FOR FINAL REPORT. REPORTED YERSINIA PSEUDOTUBERCULOSIS TO DR. SARKAR. DR. SARKAR REPORTED ISOLATION IS STANDARD PERCAUTION.
--- NOTE | 2024-12-26 17:54 | NUR ---
SHIFT SUMMARY PT IS ALERT AND ORIENTED X 4 BUT VERY [place]. HE APPEARS FORGETFUL AT TIMES BUT ANSWERS QUESTIONS APPROPRIATELY. HE HAS BEEN A 1 PERSON SBA TO BEDSIDE COMMODE OR SHOWER. BP AND HR STABLE. SPO2 MAINTAINED >92% VIA 1-2L VIA NC. THIS RN TRIALED PT ON RA AND SPO2 DROPPED TO 87%. HE DENIES FEELING SOB BUT APPEARS SOB W/ EXERTION. HE HAS DENIED FEELINGS OF CHEST PAIN/PRESSURE, LIGHTHEADED/DIZZINESS. DIET WAS ADVANCED DURING SHIFT AND HE TOLERATED IT WELL HE DENIED FEELINGS OF NAUSEA/VOMITTING AND HAD GOOD PO INTAKE. STOOLS NOTED TO BE BLACK IN COLOR AND LOOSE. HE DENIES ABD PAIN/DISCOMFORT. OCCASSIONAL PRODUCTIVE COUGH NOTED. CALL LIGHT IS W/IN REACH, BED ALARM HAS BEEN IN USE.
[2024-12-26] MEDS ORDERED: Ipratropium/Albuterol SulF 2.5-0.5MG/3 ML Amp INH SCH (19:41)
[2024-12-26 19:43] VITALS: BP 122/44
--- NOTE | 2024-12-26 19:53 | NUR ---
TRANSFER NOTE/SHIFT SUMMARY PT A&OX4. PT ADMITTED DUE TO ACUTE RESP FAILURE W HYPOXIA AND HYPERCAPNIA. PT TRANSFERED FROM WHEELCHAIR TO BED IN ARRIVAL. GOT REPORT FROM JALOUSIES INSTALLER. REPORTED SPUTUM SAMPLE RESULTS TO ACTIVITIES THERAPIST, ACTIVITIES THERAPIST SUGGESTED DROPLET ISO UNTIL DISCUSS FURTHER WITH INFECTION CONTROL. PT ARRIVED AT 1800. PT ATE DINNER. PT ORIENTED TO ROOM/UNIT/CALL LIGHT. 2 RN SKIN CHECK COMPLETED WITH MARCIN, BOTH RN NOTICED BRUISING ON EXTREMITIES. PT REPORTED NO PAIN. PT ON 1L OF O2. JALOUSIES INSTALLER REPORTED TRIED TITRATING TO BASELINE ROOM AIR BUT PT WAS DESATTING. PT IN BED, BED IN LOWEST POSITION, CALL LIGHT IN REACH.
[2024-12-26] MEDS ORDERED: NS 250 ML IV PRN (20:15)
[2024-12-27 03:50] VITALS: BP 109/49
[2024-12-27 03:53] VITALS: BP 85/55
[2024-12-27 04:03] VITALS: BP 104/50
--- NOTE | 2024-12-27 04:42 | NUR ---
Shift Summary Assumed care as of 12/26/2024 @ 1900. AOx3-4. Patient with preconceived notion that hospitals are bad (gives otherwise healthy people infections and causes ) leading to anxiety and paranoid thoughts. Hemoglobin trending down. Patient verbalizing need to dc home today because "the doctor said he fixed everything and that I am no longer bleeding" according to patient. Patient denies being symptomatic even though these symptoms are clearly visible and affecting him. For example, pt gets dyspniec with minimal exertion (moving in bed or drepositioning w/ assistance), however, he persistently says that he does this all the time and he is not short of breath. Patient sounds congested AEB hyponasal speech and a deeper muffled voice. Again, patient keeps insisting he is fine and that this is normal yet, he asks if the oxygen is on. Verbalizes the need to go home due to fear of dying in the hospital or catching an illness/infection. Patient on 2L O2 via NC, increased from 1L earlier in the shift. His baseline O2 is RA. Patient has a weak nonproductive moist cough. Needs assistance w/ urinal, spills if uses by self. Snacks and drinks provided per pt request.
[2024-12-27 06:12] LABS: Hematocrit 23.4 % (37.0-53.0); Hemoglobin 7.7 g/dL (13.5-17.5); Mean Corpuscular HGB 31.4 pg (26.0-34.0); Mean Corpuscular HGB Conc 32.9 g/dL (31.5-36.5); Mean Corpuscular Volume 96 fL (80-100); Mean Platelet Volume 10.6 fL (9.1-12.4); Platelet Count 167 K/mm3 (150-400); RDW Coefficient Variation 14.9 % (11.7-14.2); RDW Standard Deviation 51.6 fL (35.1-46.3); Red Blood Cell Count 2.45 M/mm3 (4.30-5.90); White Blood Cell Count 13.62 K/mm3 (4.00-11.30)
[2024-12-27 06:37] LABS: Albumin, Blood 1.8 g/dL (3.4-5.0); Anion Gap 2 mmol/L (3-11); Blood Urea Nitrogen 18 mg/dL (8-24); Bun/Creatinine Ratio 23.9 (12.0-20.0); CO2, Blood 40 mmol/L (21-32); Calcium, Blood 7.7 mg/dL (8.5-10.1); Chloride, Blood 96 mmol/L (98-108); Creatinine, Blood 0.75 mg/dL (0.60-1.20); Glomerular Filtration Rate 91 (60-); Glucose, Blood 120 mg/dL (70-99); Magnesium, Blood 1.9 mg/dL (1.6-2.4); Phosphorus, Blood 2.8 mg/dL (2.5-4.9); Potassium, Blood 3.7 mmol/L (3.5-5.5); Sodium, Blood 134 mmol/L (136-145)
[2024-12-27 07:29] VITALS: BP 131/61
[2024-12-27] MEDS ORDERED: CEFD300 PO (16:00)
[2024-12-27] MEDS ORDERED: OMEP20ER PO (16:01)
--- NOTE | 2024-12-27 16:19 | NUR ---
DISCHARGE NOTE PT A&OX4. PT ADMITTED DUE TO ACUTE RESP FAILURE. PT DENIED SOB ALTHOUGH HAS RAPID BREATHING. IV D/C. PT IS A ONE ASSIST TO TOILET DUE TO CORDS. PT DENIED GEN PAIN/CHEST PAIN. DR. SARKAR ORDERED DISCHARGE. HOME O2 EVAL COMPLETE. RESP CARE REPORTED PT NEEDS 3L AT REST AND 5 W EXERTION. VSS. CARE MANAGEMENT SET UP RIDE AND LINCARE. LINCARE CAME TO DROP OFF O2. CARE MANAGEMENT SET UP RIDE TO TAKE PT TO [facility] TO OPERATING ROOM SCHEDULER MEDS. WENT OVER DISCHARGE INSTRUCTIONS WITH PT AND MEDS. PT LEFT WITH PERSONAL BELONGINGS. STEAM TRAIN DRIVER ESCORTED PT TO ER LOBBY TO BE PICKED UP BY CAB.
== END 2024-12-27 16:09 | disposition home health service (06) | DRG 871 ==
LOC: ER 13:27 → ICUE 16:44 → PCU 16:44 → SURS 16:44 → ICUE 18:48 → SURS 12-24 03:36 → ICUE 12-24 07:59 → PCU 12-25 16:00 → MEDS 12-26 17:58
PROVIDERS: Internal Medicine; Student in an Organized Health Care Education/Training Program; Surgery; ADMIT Student in an Organized Health Care Education/Training Program
PROC: 5A09457 Assistance with Respiratory Ventilation, 24-96 Consecutive Hours, Continuous Positive Airway Pressure (ICD-10-PCS; 2024-12-20)
PROC: 3E03329 Introduction of Other Anti-infective into Peripheral Vein, Percutaneous Approach (ICD-10-PCS; 2024-12-20)
PROC: 30233N1 Transfusion of Nonautologous Red Blood Cells into Peripheral Vein, Percutaneous Approach (ICD-10-PCS; 2024-12-24)
PROC: 0DJ08ZZ Inspection of Upper Intestinal Tract, Via Natural or Artificial Opening Endoscopic (ICD-10-PCS; principal; 2024-12-24 10:00)
DX: A41.9 Sepsis, unspecified organism (principal); J18.0 Bronchopneumonia, unspecified organism; J96.01 Acute respiratory failure with hypoxia; J96.02 Acute respiratory failure with hypercapnia; K26.4 Chronic or unspecified duodenal ulcer with hemorrhage; K29.81 Duodenitis with bleeding; E87.1 Hypo-osmolality and hyponatremia; J44.1 Chronic obstructive pulmonary disease with (acute) exacerbation; J44.0 Chronic obstructive pulmonary disease with (acute) lower respiratory infection; I50.30 Unspecified diastolic (congestive) heart failure; D62 Acute posthemorrhagic anemia; J47.9 Bronchiectasis, uncomplicated; N28.9 Disorder of kidney and ureter, unspecified; I11.0 Hypertensive heart disease with heart failure; Z98.41 Cataract extraction status, right eye; Z79.899 Other long term (current) drug therapy; Z88.0 Allergy status to penicillin; Z88.5 Allergy status to narcotic agent
CPT/HCPCS: 36415; 36416; 36430; 71045; 76705; 80048; 80053; 80069; 80074; 82272; 82570; 82803; 82947; 83735; 83880; 83930; 83935; 84145; 84300; 84484; 85014; 85018; 85025; 85027; 86850; 86900; 86901; 86923; 87070; 87077; 87186; 87205; 93005; 93010; 93306; 94640; 94660; 94664; 94760; 94761; 94762; 96374; 97110; 97161; 97530; 99285-25; A6590; A9270; J0171; J0456; J0696; J1650; J1938; J2003; J2470; J2543; J2704; J2919; J3360; J7030; J7040; J7050; J7120; J7512; P9016